=== PATIENT | male | born 1945 | race Caucasian/White ===

== ENCOUNTER 2017-10-24 16:17 | Observation (INO) | payer OTHER, BC ==
[~2017-10-24] VITALS: Ht 177.8 cm; Wt 75.7 kg
[2017-10-24] MEDS ORDERED: SODIUM CHLORIDE 0.9% 500ML 500 ML IV STA (16:35)
[2017-10-24] MEDS ORDERED: ASPIRIN 81 MG CHEW PO STA (16:35)
[2017-10-24] MEDS: NITROGLYCERIN 0.4 MG SL PER TAB CHARGE SL PRN ×2 (16:41→16:54)
[2017-10-24] MEDS ORDERED: VITAMIN B PO (16:59)
[2017-10-24] MEDS ORDERED: LUTE15CA (16:59)
[2017-10-24] MEDS ORDERED: CHOL100027 PO (16:59)
[2017-10-24 17:05] LABS: BASO % 0.4 %; BASO ABS # 0.04 K/uL (0-0.2); EOS % 0.4 %; EOS ABS # 0.04 K/uL (0-0.5); HEMATOCRIT 41.5 % (42-52); HEMOGLOBIN 14.9 g/dL (14.0-18.0); IG# 0.02 K/uL (0.00-0.02); LYMPH % 8.3 %; LYMPH ABS # 0.89 K/uL (1.2-3.4); MEAN CELL VOLUME 93.5 fL (80-100); MEAN CORPUSCULAR HEMOGLOBIN 33.6 pg (25-34); MEAN CORPUSCULAR HGB CONC 35.9 g/dl (32-36); MEAN PLATELET VOLUME 10.1 fL (7.4-10.4); MONO % 5.5 %; MONO ABS # 0.59 K/uL (0.11-0.59); NEUT % 85.2 %; PLATELET COUNT 204 K/uL (130-400); RED CELL DISTRIBUTION WIDTH CV 13.5 % (11.5-14.5); RED CELL DISTRIBUTION WIDTH SD 46.3 fL (36.4-46.3); WHITE BLOOD COUNT 10.78 K/uL (4.8-10.8)
--- NOTE | 2017-10-24 17:06 | DIAGNOSTIC IMAGING REPORT ---
SINGLE VIEW CHEST CLINICAL HISTORY: Atypical chest pain. FINDINGS: An AP, portable, upright chest radiograph is obtained. No prior studies are available for comparison at the time of dictation. The examination is degraded by portable technique and patient rotation. The heart is mildly enlarged. The pulmonary vasculature is noncongested. Bibasilar atelectasis is observed. No airspace consolidation or large pleural effusion is identified. No pneumothorax is seen. The skeletal structures are osteopenic. The bony thorax is grossly intact. IMPRESSION: Mild cardiac enlargement with no acute cardiopulmonary abnormality. Electronically signed by: Partha Leavitt M.D. 10/24/2017 5:05 PM Dictated Date/Time: 10/24/2017 5:04 PM
[2017-10-24 17:32] LABS: BLOOD UREA NITROGEN 15 mg/dl (7-18); CALCIUM 9.1 mg/dl (8.5-10.1); CARBON DIOXIDE 27 mmol/L (21-32); CKMB < 1.0 ng/ml (0.5-3.6); CREATININE 0.89 mg/dl (0.60-1.40); GLUCOSE 118 mg/dl (70-99); POTASSIUM 3.7 mmol/L (3.5-5.1); SODIUM 137 mmol/L (136-145)
[2017-10-24] MEDS ORDERED: GI COCKTAIL PO STA (18:30)
[2017-10-24] MEDS ORDERED: LIDOCAINE HCL 2% VISC SOLN 20 ML UDC ONE (18:45)
[2017-10-24] MEDS ORDERED: ALUMINUM/MAGNESIUM SUSP 30 ML UDC ONE (18:45)
--- NOTE | 2017-10-24 19:20 | EMERGENCY ROOM VISIT NOTE ---
History Report prepared by Charmaine: Franki Alonso Under the Supervision of: Dr. Roosevelt Webb D.O. First contact with patient: 16:25 Chief Complaint: CHEST PAIN Stated Complaint: CHEST PAIN History of Present Illness The patient is a 72 year old male who presents to the Emergency Room with complaints of waxing and waning chest pain that started today at 1300, 3.5 hours ago. The pain does not radiate anywhere and he describes it as a dull, achy sensation rating at a 4/10 in severity. The patient noted that the pain first appeared earlier in the day and went away after a nap, but returned a little while later. He says there are no factors that modify the pain. The patient states he is pretty active and regularly does yard work. He also stated that he stopped smoking 20 years ago and that both his grandmother and father from AAA following surgery. Pt denies headache, change in vision, fevers, shortness of breath, nausea, vomiting, diarrhea, pain with urination, and melena. Patient denies diabetes, hypertension, hyperlipidemia, CAD, and history of sudden at a young age. Patient denies swelling of calves, recent trips , history of immobilization or recent surgery, prior history of DVT, hemoptysis , history of malignancy, or control/estrogen use. Source of History: patient Onset: 3.5 hours ago Position: chest Symptom Intensity: 4/10 Quality: ache, dull Timing: waxes/wanes Review of Systems See HPI for pertinent positives & negatives. A total of 10 systems reviewed and were otherwise negative. Past Medical & Surgical Medical Problems: (1) Chest pain Pt denies any past medical history Family History FH: aortic aneurysm Social History Smoking Status: Former Smoker Marital Status: Housing Status: lives with significant other Occupation Status: employed Current/Historical Medications Scheduled Cholecalciferol (Vitamin D 1000 Unit), 2,000 INTER.UNIT PO DAILY Lutein-Zeaxanthin (Lutein), 1 CAP DAILY [Vitamin B], 1 TAB PO DAILY Allergies Coded Allergies: No Known Allergies (Unverified , 10/24/17) Physical Exam Vital Signs Date Time Temp Pulse Resp B/P (MAP) Pulse Ox O2 Delivery O2 Flow Rate FiO2 10/24/17 20:16 86 10/24/17 20:00 90 17 133/79 10/24/17 19:00 72 20 116/74 10/24/17 18:05 74 20 122/70 98 Room Air 10/24/17 17:00 83 20 124/73 98 Room Air 10/24/17 16:50 82 20 136/80 97 Room Air 10/24/17 16:47 93 10/24/17 16:40 80 160/97 97 Room Air 10/24/17 16:30 98 Room Air 10/24/17 16:22 37.0 96 18 172/95 98 Room Air Physical Exam GENERAL: Sitting up in bed, alert, well appearing, well nourished, no distress, non-toxic EYE EXAM: normal conjunctiva. OROPHARYNX: no exudate, no erythema, lips, buccal mucosa, and tongue normal and mucous membranes are moist NECK: supple, no nuchal rigidity, no adenopathy, non-tender LUNGS: Clear to auscultation. Normal chest wall mechanics HEART: Systolic injection murmur, S1 normal and S2 normal ABDOMEN: abdomen soft, non-tender, normo-active bowel sounds, no masses, no rebound or guarding. BACK: Back is symmetrical on inspection and there is no deformity, no midline tenderness, no CVA tenderness. SKIN: no rashes and no bruising UPPER EXTREMITIES: upper extremities are grossly normal. Radial pulses equal bilaterally LOWER EXTREMITIES: Calves equal bilaterally NEURO EXAM: Normal sensorium, cranial nerves II-XII grossly intact, normal speech, no gross weakness of arms, no gross weakness of legs. Medical Decision & Procedures ER Provider Diagnostic Interpretation: Radiology results as stated below per my review and the radiologist's interpretation: SINGLE VIEW CHEST CLINICAL HISTORY: Atypical chest pain. FINDINGS: An AP, portable, upright chest radiograph is obtained. No prior studies are available for comparison at the time of dictation. The examination is degraded by portable technique and patient rotation. The heart is mildly enlarged. The pulmonary vasculature is noncongested. Bibasilar atelectasis is observed. No airspace consolidation or large pleural effusion is identified. No pneumothorax is seen. The skeletal structures are osteopenic. The bony thorax is grossly intact. IMPRESSION: Mild cardiac enlargement with no acute cardiopulmonary abnormality. Electronically signed by: Partha Leavitt M.D. 10/24/2017 5:05 PM Dictated Date/Time: 10/24/2017 5:04 PM Laboratory Results 10/24/17 16:50 Red Blood Count 4.44, Mean Corpuscular Volume 93.5, Mean Corpuscular Hemoglobin 33.6, Mean Corpuscular Hemoglobin Concent 35.9, Mean Platelet Volume 10.1, Neutrophils (%) (Auto) 85.2, Lymphocytes (%) (Auto) 8.3, Monocytes (%) (Auto) 5.5, Eosinophils (%) (Auto) 0.4, Basophils (%) (Auto) 0.4, Neutrophils # (Auto) 9.20, Lymphocytes # (Auto) 0.89, Monocytes # (Auto) 0.59, Eosinophils # (Auto) 0.04, Basophils # (Auto) 0.04 10/24/17 16:50 Test 10/24/17 16:50 10/24/17 19:20 White Blood Count 10.78 K/uL (4.8-10.8) Red Blood Count 4.44 M/uL (4.7-6.1) Hemoglobin 14.9 g/dL (14.0-18.0) Hematocrit 41.5 % (42-52) Mean Corpuscular Volume 93.5 fL (80-100) Mean Corpuscular Hemoglobin 33.6 pg (25-34) Mean Corpuscular Hemoglobin Concent 35.9 g/dl (32-36) Platelet Count 204 K/uL (130-400) Mean Platelet Volume 10.1 fL (7.4-10.4) Neutrophils (%) (Auto) 85.2 % Lymphocytes (%) (Auto) 8.3 % Monocytes (%) (Auto) 5.5 % Eosinophils (%) (Auto) 0.4 % Basophils (%) (Auto) 0.4 % Neutrophils # (Auto) 9.20 K/uL (1.4-6.5) Lymphocytes # (Auto) 0.89 K/uL (1.2-3.4) Monocytes # (Auto) 0.59 K/uL (0.11-0.59) Eosinophils # (Auto) 0.04 K/uL (0-0.5) Basophils # (Auto) 0.04 K/uL (0-0.2) RDW Standard Deviation 46.3 fL (36.4-46.3) RDW Coefficient of Variation 13.5 % (11.5-14.5) Immature Granulocyte % (Auto) 0.2 % Immature Granulocyte # (Auto) 0.02 K/uL (0.00-0.02) Erythrocyte Sedimentation Rate 3 mm/hr (0-14) D-Dimer 430 ug/L FEU (0-500) Anion Gap 6.0 mmol/L (3-11) Est Creatinine Clear Calc Drug Dose 79.7 ml/min Estimated GFR () 100.4 Estimated GFR (Non- 86.6 BUN/Creatinine Ratio 16.3 (10-20) Calcium Level 9.1 mg/dl (8.5-10.1) Magnesium Level 1.9 mg/dl (1.8-2.4) Total Bilirubin 1.6 mg/dl (0.2-1) Direct Bilirubin 0.4 mg/dl (0-0.2) Aspartate Amino Transf (AST/SGOT) 21 U/L (15-37) Alanine Aminotransferase (ALT/SGPT) 32 U/L (12-78) Alkaline Phosphatase 92 U/L (45-117) Total Creatine Kinase 63 U/L (39-308) Creatine Kinase MB < 1.0 ng/ml (0.5-3.6) Creatine Kinase MB Ratio (0-3.0) Total Protein 7.9 gm/dl (6.4-8.2) Albumin 4.6 gm/dl (3.4-5.0) Lipase 90 U/L (73-393) Thyroid Stimulating Hormone (TSH) 0.680 uIu/ml (0.300-4.500) Troponin I < 0.015 ng/ml (0-0.045) Laboratory results per my review. Medications Administered Medications (Trade) Dose Ordered Sig/Cassy Route Start Time Stop Time Status Last Admin Dose Admin Sodium Chloride 500 ml @ 999 mls/hr Q31M STAT IV 10/24/17 16:35 10/24/17 17:05 DC 10/24/17 16:41 999 MLS/HR Nitroglycerin (Nitrostat Tab) 0.4 mg Q5M PRN SL 10/24/17 16:45 11/23/17 16:44 10/24/17 16:54 0.4 MG Aspirin (Aspirin Chew) 324 mg NOW STAT PO 10/24/17 16:35 10/24/17 16:37 DC 10/24/17 16:40 324 MG Miscellaneous Medication (Gi Cocktail) 24 ml NOW STAT PO 8/4/18 18:30 10/24/17 18:31 DC 10/24/17 18:50 24 ML ECG Per My Interpretation Indication: chest pain Rate (beats per minute): 97 Rhythm: sinus rhythm Findings: other (Poor baseline, no PVCs, normal axis) Change: REPEAT EKG SHOWS: Sinus Rhythm 75, normal axis, mil ST segment elevation in the inferior. ED Course ED COURSE: Vital signs were reviewed and showed Normal The patients medical record was reviewed The above diagnostic studies were performed and reviewed. ED treatments and interventions as stated above. 1626: The patient was evaluated in room C10. A complete history and physical examination was performed. 1635: Ordered Aspirin 324mg PO, NSS 500 ml @ 999mls/hr IV 1645: NTG .4mg SL 174: Patient wants to go home but I am going to repeat trop before discharge 1912: The patient is feeling much better, the GI cocktail did improve his pain. 1947: There is no chest pain, he is having some discomfort with deep inhalation. 1951: I discussed the case with Dr. Kim - Cardiology. He will evaluate the EKGs findings. 2051: Upon reevaluation, the patient is resting in bed. I discussed my findings with the patient and he understands and agrees with the treatment plan. Based on the patients age, coexisting illnesses, exam and lab findings the decision to treat as an inpatient was made. The patient remained stable while under my care. The patient will be evaluated for further management. 2052: I discussed with Dr. Zulema Carmen [facility] Hospitalist. He will evaluate for further treatment. Medical Decision Differential diagnoses includes but is not limited to acute coronary syndrome, myocardial infarction, pericarditis, pulmonary embolus, aortic dissection, pneumonia, pneumothorax, musculoskeletal, shingles, esophageal. 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 It is midsternal. No arm pain or jaw pain. No shortness of breath. No exertional component. He notes it feels like a muscle. Patient is a low risk for PEs and consequently d- dimer was obtained and unremarkable. Does have a family history of aortic issues. He has no known issues from standpoint. Chest x-ray does not show a dilated aorta. EKG was unremarkable. Initial troponin was negative. CBC and BMP was unremarkable. He was given nitro but noted that there is no significant improvement. He was given a GI cocktail and notes that there is mild improvement but is not sure whether it has just truly resolved with time. D-dimer as stated above was negative. Initial troponin was negative. Repeat troponin which would be a delta of 2 hours or 6 hours from the initial onset was negative. Repeat EKG at this time did show mild ST segment elevations in the inferior. There is no reciprocal changes. At this time patient had no chest pain. Only component was a pleuritic chest pain when he takes a very deep breath. Discussed with Dr. Kim who reviewed the EKGs. With his symptoms been present since 1 and his troponins being both negative he favors holding on heparin and catheterization at this time. Recommended at bedside echo to rule out any large pericardial effusion for possible pericarditis. I did perform this my focused limited bedside ultrasound shows no pericardial effusion. Said was obtained. Patient was updated bedside. Still chest pain- free. Discussed with Dr. Woodson and patient was agreeable to admission. He had declined this initially following the first troponin as he wants to go home but with these changes he was agreeable. Medication Reconcilliation Current Medication List: was personally reviewed by me Blood Pressure Screening Patient's blood pressure: Normal blood pressure Consults Time Called: 1945 Consulting Physician: Dr. Kim - Cardiology Returned Call: 1951 I discussed the case with Dr. Kim - Cardiology. He will evaluate the EKGs findings. Additional Consults: Time Called: 2049 Consulted Physician: Dr. Zulema Rojas Hospitalist Returned Call: 2052 Additional Comments: I discussed with Dr. Zulema Rojas Hospitalist. He will evaluate for further treatment. Impression Primary Impression: Precordial chest pain Additional Impression: Acute electrocardiogram changes Scribe Attestation The scribe's documentation has been prepared under my direction and personally reviewed by me in its entirety. I confirm that the note above accurately reflects all work, treatment, procedures, and medical decision making performed by me. Departure Information Dispostion Being Evaluated By Hospitalist Referrals No Doctor, Assigned (PCP) Patient Instructions My [facility] Problem Qualifiers
[2017-10-24 21:10] LABS: ALBUMIN 4.6 gm/dl (3.4-5.0); ALKALINE PHOSPHATASE 92 U/L (45-117); ALT/SGPT 32 U/L (12-78); AST/SGOT 21 U/L (15-37); LIPASE 90 U/L (73-393); TOTAL PROTEIN 7.9 gm/dl (6.4-8.2)
[2017-10-24] MEDS ORDERED: IV FLUIDS COMPLETED PRN (21:15)
[2017-10-24] MEDS ORDERED: ACETAMINOPHEN 325 MG TAB PO PRN (21:30)
[2017-10-24] MEDS ORDERED: TRAMADOL HCL 50 MG TAB PO PRN (21:30)
[2017-10-24] MEDS ORDERED: LORAZEPAM 2 MG/ML 1 ML VIAL IV PRN (21:30)
[2017-10-24] MEDS ORDERED: NITROGLYCERIN 0.4 MG SL PER TAB CHARGE SL PRN (21:30)
[2017-10-24] MEDS ORDERED: MoRPHine SULFATE 4 MG/ML 1 ML CARP\\VIAL IV PRN (21:30)
[2017-10-24] MEDS ORDERED: PROCHLORPERAZINE INJ 5 MG in SYRINGE 4 ML IV PRN (21:30)
[2017-10-24] MEDS ORDERED: LISINOPRIL 5 MG TAB PO STA (21:35)
[2017-10-24 22:09] VITALS: BP 138/83; PULSE 84; TEMP 37.2; O2SAT 96; Ht 177.8 cm; Wt 75.7 kg
[2017-10-24] MEDS ORDERED: LISINOPRIL 2.5 MG TAB PO ONE (22:15)
[2017-10-24] MEDS ORDERED: NSS + 20MEQ KCL 1000ML 1,000 ML IV ONE (22:30)
[2017-10-24 22:43] LABS: PTT PATIENT 28.4 SECONDS (21.0-31.0)
[2017-10-24] MEDS ORDERED: ENOXAPARIN 40 MG/0.4 ML SYR SC SCH (23:00)
--- NOTE | 2017-10-24 23:19 | Cardiology Consultation ---
Cardiology Consultation Date of Consultation: Oct 24, 2017 Requesting Physician: Dr. Eugene Rodrigez Attending [employer] Engineer: Dr. Luis Eduardo Kim History of Present Illness Patient is a 72 year old male presented to the emergency department for evaluation of chest discomfort. Patient had been working in his yard this morning. He was raking as well as lifting some moderately heavy objects. Denied any discomfort while exerting himself. Afterward he consumed a hotdog from a local gas station. After eating at approximately 1:30 PM he experienced an episode of substernal chest discomfort. Describes the pain as a dull ache. The pain was mild to moderate in intensity. There was no associated shortness of breath, palpitations, diaphoresis, lightheadedness, dizziness, syncope or near syncope. The pain did not radiate. Lasted less than 15 minutes. Patient went home and rested. In the afternoon he was driving to see a [employer] game when the pain recurred. Patient then proceeded to the emergency department for further evaluation. The initial ECG demonstrates normal sinus rhythm. Repeat ECG demonstrates some subtle inferior ST elevation with associated [place] depression. Patient was treated with aspirin, sublingual nitroglycerin, and " GI cocktail". His pain resolved. He then reported a mild lower substernal discomfort with deep inspiration. That pain is also significantly improved. Currently he is pain-free. He can reproduce a mild sensation described as a "muscle pulling" with deep inspiration. No pain at rest. He is consuming a meal. He denies chest heaviness or tightness. No shortness of breath. No dysrhythmias on telemetry. A fourth ECG performed this evening demonstrates diffuse ST elevation as well as [place] depression. Cardiac enzymes are undetectable 3 sets. Patient denies personal history of coronary disease, congestive heart failure, dysrhythmia, rheumatic fever as a child, or diabetes. States he carries a history of mitral valve prolapse. Past Medical/Surgical History Problem List: Medical Problems: (1) Chest pain (2) Possible mitral valve prolapse Family History FH: aortic aneurysm Denies family history of premature coronary disease or sudden cardiac . Social History Smoking Status: Former Smoker Marital Status: Occupation: employed Review Of Systems General: The patient denies weight change, night sweats, fever, chills. Head: The patient denies headache and prior head trauma. Cardiovascular: Chest discomfort as noted per HPI, dyspnea on exertion, palpitations, PND, orthopnea, edema, spontaneous shortness of breath, syncope and near syncope. Pulmonary: The patient denies cough, wheeze, pleurisy, hemoptysis, sputum, and excessive snoring. Gastrointestinal: The patient denies nausea, vomiting, diarrhea, constipation, bloating, hematemesis, hematochezia, and abdominal pain. Skin: The patient denies diaphoresis and rash. Musculoskeletal: The patient denies joint pain, joint swelling, myalgia, back pain, neck pain and prior injuries. Neurological: The patient denies prior stroke and seizures Allergies Coded Allergies: No Known Allergies (Unverified , 10/24/17) Medications Reported Home Medications Medications Dose Route/Sig Max Daily Dose Days Date Category Lutein (Lutein-Zeaxanthin) 1 Cap Cap 1 Cap DAILY 10/24/17 Reported [Vitamin B] 1 Tab PO DAILY 10/24/17 Reported Vitamin D 1000 Unit (Cholecalciferol) 1,000 Unit Cap 2,000 Inter.unit PO DAILY 10/24/17 Reported Physical Exam Vital Signs (Last 8hrs): Last 8 Hrs Date Time Temp Pulse Resp B/P (MAP) Pulse Ox O2 Delivery O2 Flow Rate FiO2 10/24/17 22:09 37.2 84 16 138/83 96 Room Air 10/24/17 20:16 86 10/24/17 20:00 90 17 133/79 10/24/17 19:00 72 20 116/74 10/24/17 18:05 74 20 122/70 98 Room Air 10/24/17 17:00 83 20 124/73 98 Room Air 10/24/17 16:50 82 20 136/80 97 Room Air 10/24/17 16:47 93 10/24/17 16:40 80 160/97 97 Room Air 10/24/17 16:30 98 Room Air 10/24/17 16:22 37.0 96 18 172/95 98 Room Air General Appearance: Alert and Oriented x3. NAD. Head: Normocephalic Atraumatic. Eyes: PERRLA, EOMI, conjunctiva and sclera clear Neck: Supple. No carotid bruits noted. No JVD. No HJD. Respiratory: Breath sounds clear to auscultation bilaterally. No w/r/r. Cardiovascular: Reg rate and rhythm. S1 and S2 noted. +Friction rub heard at the left sternal border at end exhalation. 2/6 holosystolic murmur heard best at the apex. No gallops. PMI non displace. Abdomen: Normal bowel sounds, soft nontender. no abdominal bruits. Extremities: No edema, no clubbing or cyanosis. distal pulses 2/4 bilaterally. Neuro: No focal deficits. Psychiatric: Normal affect. Data Last 24 Hours Test 10/24/17 16:50 10/24/17 19:20 10/24/17 22:07 White Blood Count 10.78 K/uL Red Blood Count 4.44 M/uL Hemoglobin 14.9 g/dL Hematocrit 41.5 % Mean Corpuscular Volume 93.5 fL Mean Corpuscular Hemoglobin 33.6 pg Mean Corpuscular Hemoglobin Concent 35.9 g/dl Platelet Count 204 K/uL Mean Platelet Volume 10.1 fL Neutrophils (%) (Auto) 85.2 % Lymphocytes (%) (Auto) 8.3 % Monocytes (%) (Auto) 5.5 % Eosinophils (%) (Auto) 0.4 % Basophils (%) (Auto) 0.4 % Neutrophils # (Auto) 9.20 K/uL Lymphocytes # (Auto) 0.89 K/uL Monocytes # (Auto) 0.59 K/uL Eosinophils # (Auto) 0.04 K/uL Basophils # (Auto) 0.04 K/uL RDW Standard Deviation 46.3 fL RDW Coefficient of Variation 13.5 % Immature Granulocyte % (Auto) 0.2 % Immature Granulocyte # (Auto) 0.02 K/uL Erythrocyte Sedimentation Rate 3 mm/hr D-Dimer 430 ug/L FEU Sodium Level 137 mmol/L Potassium Level 3.7 mmol/L Chloride Level 103 mmol/L Carbon Dioxide Level 27 mmol/L Anion Gap 6.0 mmol/L Blood Urea Nitrogen 15 mg/dl Creatinine 0.89 mg/dl Est Creatinine Clear Calc Drug Dose 79.7 ml/min Estimated GFR () 100.4 Estimated GFR (Non- 86.6 BUN/Creatinine Ratio 16.3 Random Glucose 118 mg/dl Calcium Level 9.1 mg/dl Magnesium Level 1.9 mg/dl Total Bilirubin 1.6 mg/dl Direct Bilirubin 0.4 mg/dl Aspartate Amino Transf (AST/SGOT) 21 U/L Alanine Aminotransferase (ALT/SGPT) 32 U/L Alkaline Phosphatase 92 U/L Total Creatine Kinase 63 U/L Creatine Kinase MB < 1.0 ng/ml Creatine Kinase MB Ratio Troponin I < 0.015 ng/ml < 0.015 ng/ml < 0.015 ng/ml Total Protein 7.9 gm/dl Albumin 4.6 gm/dl Lipase 90 U/L Thyroid Stimulating Hormone (TSH) 0.680 uIu/ml Prothrombin Time 10.7 SECONDS Prothromb Time International Ratio 1.0 Activated Partial Thromboplast Time 28.4 SECONDS Partial Thromboplastin Ratio 1.1 C-Reactive Protein 1.84 mg/dl Imaging: Checks x-ray within normal limits. EKG: As described per HPI. Telemetry reviewed: Sinus rhythm Assessment & Plan Final Impression: 1. 72-year-old male presents for evaluation of chest discomfort with pleuritic features. Cardiac enzymes undetectable 3 sets. Currently pain-free except for a mild amount of substernal discomfort with deep inhalation. ECG with findings concerning for pericarditis. 2. Former Tobacco abuse 3. History of mitral valve prolapse Plan / Recommendations: Patient's third set of cardiac enzymes are undetectable as noted above. A bedside echocardiogram will be performed to exclude regional wall motion abnormality as well as to assess for potential pericardial effusion. CRP drawn with results pending at this time. Continue low-dose aspirin and telemetry monitoring. Consider exercise stress echocardiography in a.m. pending results of resting 2D transthoracic echo. Thank you for allowing me to participate in the care of your patient. Addendum: Bedside echocardiogram demonstrates normal wall motion, posterior mitral valve prolapse with moderate mitral regurgitation. Patient remains pain- free. CRP is elevated. ECG suggestive of pericarditis with pleuritic pain as described above. Recommend aspirin 650 mg 3 times daily with colchicine 0.6 mg daily weekly. Proton pump inhibitor will be added for GI protection. Baseline lab studies to be performed in a.m. including VERONICA, rheumatoid factor, Quantiferon TB test.
[2017-10-24] MEDS ORDERED: ASPIRIN/ALUM/MAGNES/CAL CARB 325 MG TAB PO ONE (23:34)
--- NOTE | 2017-10-24 23:37 | HISTORY & PHYSICAL EXAMINATION ---
DATE OF ADMISSION: 10/24/2017 PRIMARY CARE PHYSICIAN: None. CHIEF COMPLAINT: Chest pain. HISTORY OF PRESENT ILLNESS: Medical history significant for past tobacco abuse. Patient was working in the yard today, noted substernal pain, nonradiating, waxing and waning, dull, pleuritic. No shortness of breath, no diaphoresis, no previous episodes. No recollection of recent tick bites. Patient brought to the Emergency. Given aspirin, Maalox, nitroglycerin. Patient is currently comfortable. MEDICAL HISTORY: As above. SURGERIES: Dental surgery, tonsillectomy, and adenoidectomy. HOME MEDICATIONS: Include vitamin D, Lutein. ALLERGIES: No known drug allergies. FAMILY HISTORY: Aortic aneurysm, heart disease. PERSONAL AND SOCIAL HISTORY: Past tobacco use. No EtOH intake. Practicing high school director. REVIEW OF SYSTEMS: As per HPI. All 10 systems reviewed, all other ROS negative. PHYSICAL EXAMINATION: VITAL SIGNS: Blood pressure was noted to be 170/95, later 136/60, pulse rate noted to be 82, RR 20, temperature 37, sats 98 on room air. GENERAL: Slightly anxious, no respiratory distress. SKIN: Normal color, warm. HEENT: Partial alopecia. Bespectacled, pink palpebral conjunctivae. No ptosis, dry mucosa. NECK: Supple, nontender. CHEST: Clear to auscultation, No chest wall tenderness. HEART: Regular rate rhythm, no murmur. ABDOMEN: Soft, nontender. EXTREMITIES: No edema. No tenderness, no gross deformities. NEUROLOGIC: Coherent, no gross focality. LABORATORY DATA: Hemoglobin was 13 WBC 9, platelets 204. Sodium 137, potassium 3.7, chloride 103, CO2 7, BUN 50, creatinine 0.8, glucose is 118. ESR 3 Two sets of troponin were negative. Chest x-ray, cardiomegaly, mild cardiac enlargement. EKG as per my interpretation, rate 75, NSR, ST elevation in inferior leads, Q- waves inferior leads, NE depression noted on some leads. ASSESSMENT AND PLAN: 1. Chest pain ACS versus pericarditis 2. elevated blood pressure Situational versus chronic (given cardiac enlargement on CXR) 3. hyperglycemia ro DM 4. past tobacco abuse PLAN: Observation PCU ASA for CAD prevention until ACS ruled out. Follow cardiac markers Check CRP, Lyme screen. 2D echo, Cardio consult in the morning. RE cp (ER provider already in touch with Dr. Kim.) Monitor BP, consider initiation of NEHEMIAS inhibitor if with constant BP elevation check hemoglobin A1c DVT prophylaxis, Lovenox subQ. Full code. MTDD
[2017-10-25] MEDS ORDERED: KETOROLAC TROMETHAMINE 15 MG/ML VIAL IV. PRN
[2017-10-25] MEDS ORDERED: IBUPROFEN 200 MG TAB PO PRN
--- NOTE | 2017-10-25 00:04 | ECHOCARDIOGRAM REPORT ---
*NOTICE TO RECEIVING REPUBLICAN AGENCY This information is strictly Confidential and protected under [place] law. [place] law prohibits you from making any further disclosure of this information unless further disclosure is expressly permitted by the written consent of the person to whom it pertains or is authorized by law. A general authorization for the release of medical or other information is not sufficient for this purpose. Hospital accepts no responsibility if the information is made available to any other person, INCLUDING THE PATIENT. Interpretation Summary * Name: FARIDA FIGUEROA Study Date: 10/24/2017 11:09 PM BP: 138/83 mmHg * Patient Location: [facility] HR: 83 * : 1945 (M/d/yyyy) Gender: Male Height: 70 in * Age: 72 yrs Ethnicity: CA Weight: 176 lb * Ordering Physician: Armando Kim DO * Performed By: Shruthi Joseph RCS * * Reason For Study: CHEST PAIN * BSA: 2.0 m2 * The study was technically adequate. * There is no comparison study available. * -- Conclusions -- * Left ventricular systolic function is normal. * Ejection Fraction = 60-65%. * The left ventricular wall motion is normal. * Grade I diastolic dysfunction, (abnormal relaxation pattern). * There is no pericardial effusion. * Moderate posterior mitral valve leaflet prolapse. * There is moderate mitral regurgitation. * Mild aortic root dilatation. Procedure Details * A complete two-dimensional transthoracic echocardiogram was performed (2D, M-mode, Doppler and color flow Doppler). Left Ventricle * The left ventricle is normal in size. * There is no thrombus. * There is normal left ventricular wall thickness. * Left ventricular systolic function is normal. * Ejection Fraction = 60-65%. * The left ventricular wall motion is normal. Right Ventricle * The right ventricular cavity size is normal (basal dimension <4.2 cm in right ventricular apical 4-chamber view). * The right ventricular systolic function is normal as assessed by tricuspid annular plane systolic excursion (TAPSE) (normal >1.5 cm). Atria * The left atrial size is normal. * Right atrial size is normal. * There is no evidence of atrial septal defect, but resolution does not allow assessment for a patent foramen ovale. Mitral Valve * The mitral valve is normal. * Moderate posterior mitral valve leaflet prolapse. * There is no mitral valve stenosis. * There is moderate mitral regurgitation. Tricuspid Valve * The tricuspid valve is normal. * There is no tricuspid stenosis. * Significant tricuspid regurgitation is absent. Aortic Valve * The aortic valve is trileaflet. * Aortic stenosis is absent. * There is no significant aortic regurgitation. Pulmonic Valve * The pulmonary valve is not well seen, but the Doppler examination is normal without significant regurgitation or stenosis. Great Vessels * Mild aortic root dilatation. Pericardium/Pleural * There is no pericardial effusion. Great Vessels * Normal inferior vena cava diameter and respiratory variation suggests normal central venous pressure. Left Ventricular Diastolic Function * Grade I diastolic dysfunction, (abnormal relaxation pattern). MMode 2D Measurements and Calculations IVSd 1.3 cm IVSs 1.8 cm LVIDd 4.9 cm LVIDs 2.8 cm LVPWd 1.2 cm LVPWs 1.6 cm IVS/LVPW 1.1 FS 42.7 % EDV(Teich) 110.2 ml ESV(Teich) 29.0 ml EF(Teich) 73.7 % EDV(cubed) 114.1 ml ESV(cubed) 21.4 ml EF(cubed) 81.2 % % IVS thick 41.0 % % LVPW thick 37.4 % LV mass(C)d 225.5 grams LV mass(C)dI 114.1 grams/m\S\2 LV mass(C)s 176.1 grams LV mass(C)sI 89.1 grams/m\S\2 SV(Teich) 81.2 ml SI(Teich) 41.1 ml/m\S\2 SV(cubed) 92.7 ml SI(cubed) 46.9 ml/m\S\2 Ao root diam 4.0 cm Ao root area 12.5 cm\S\2 ACS 2.2 cm LA dimension 3.1 cm LA/Ao 0.78 LVOT diam 2.0 cm LVOT area 3.1 cm\S\2 LVAd ap4 23.6 cm\S\2 LVLd ap4 6.8 cm EDV(MOD-sp4) 67.8 ml EDV(sp4-el) 69.2 ml LVAs ap4 15.1 cm\S\2 LVLs ap4 5.7 cm ESV(MOD-sp4) 33.3 ml ESV(sp4-el) 33.7 ml EF(MOD-sp4) 51.0 % EF(sp4-el) 51.4 % LVAd ap2 29.1 cm\S\2 LVLd ap2 7.5 cm EDV(MOD-sp2) 94.1 ml EDV(sp2-el) 95.9 ml LVAs ap2 16.2 cm\S\2 LVLs ap2 5.9 cm ESV(MOD-sp2) 37.5 ml ESV(sp2-el) 37.6 ml EF(MOD-sp2) 60.1 % EF(sp2-el) 60.8 % LVLd %diff 9.0 % EDV(MOD-bp) 83.7 ml LVLs %diff 3.3 % ESV(MOD-bp) 35.5 ml EF(MOD-bp) 57.6 % SV(MOD-sp4) 34.6 ml SI(MOD-sp4) 17.5 ml/m\S\2 SV(MOD-sp2) 56.6 ml SI(MOD-sp2) 28.6 ml/m\S\2 SV(MOD-bp) 48.2 ml SI(MOD-bp) 24.4 ml/m\S\2 SV(sp4-el) 35.5 ml SI(sp4-el) 18.0 ml/m\S\2 SV(sp2-el) 58.3 ml SI(sp2-el) 29.5 ml/m\S\2 Doppler Measurements and Calculations MV E max anand 79.8 cm/sec MV A max anand 85.2 cm/sec MV E/A 0.94 MV P1/2t max anand 84.6 cm/sec MV P1/2t 67.8 msec MVA(P1/2t) 3.2 cm\S\2 MV dec slope 365.1 cm/sec\S\2 MV dec time 0.27 sec Ao V2 max 141.2 cm/sec Ao max PG 8.0 mmHg Ao max PG (full) 1.4 mmHg TRACI(V,A) 2.8 cm\S\2 TRACI(V,D) 2.8 cm\S\2 LV V1 max PG 6.6 mmHg LV V1 max 128.0 cm/sec MR max anand 550.3 cm/sec MR max PG 121.5 mmHg PA V2 max 71.6 cm/sec PA max PG 2.1 mmHg TR max anand 258.8 cm/sec
[2017-10-25 03:00] VITALS: BP 109/68; PULSE 72; TEMP 37; O2SAT 96
[2017-10-25 04:11] LABS: BASO % 0.4 %; BASO ABS # 0.04 K/uL (0-0.2); EOS % 0.8 %; EOS ABS # 0.07 K/uL (0-0.5); HEMATOCRIT 38.9 % (42-52); HEMOGLOBIN 13.6 g/dL (14.0-18.0); IG# 0.02 K/uL (0.00-0.02); LYMPH % 19.6 %; LYMPH ABS # 1.82 K/uL (1.2-3.4); MEAN CELL VOLUME 93.5 fL (80-100); MEAN CORPUSCULAR HEMOGLOBIN 32.7 pg (25-34); MEAN PLATELET VOLUME 9.6 fL (7.4-10.4); MONO % 8.7 %; MONO ABS # 0.81 K/uL (0.11-0.59); NEUT % 70.3 %; NEUT ABS # 6.52 K/uL (1.4-6.5); PLATELET COUNT 190 K/uL (130-400); RED CELL DISTRIBUTION WIDTH CV 13.7 % (11.5-14.5); RED CELL DISTRIBUTION WIDTH SD 46.5 fL (36.4-46.3); WHITE BLOOD COUNT 9.28 K/uL (4.8-10.8)
[2017-10-25 04:25] LABS: PTT PATIENT 33.6 SECONDS (21.0-31.0)
[2017-10-25 04:46] LABS: ALBUMIN 3.6 gm/dl (3.4-5.0); ALKALINE PHOSPHATASE 75 U/L (45-117); ALT/SGPT 25 U/L (12-78); AST/SGOT 13 U/L (15-37); BLOOD UREA NITROGEN 12 mg/dl (7-18); CALCIUM 8.2 mg/dl (8.5-10.1); CARBON DIOXIDE 25 mmol/L (21-32); CHOLESTEROL 143 mg/dl (0-200); CREATININE 0.82 mg/dl (0.60-1.40); GLUCOSE 102 mg/dl (70-99); LDL CHOLESTEROL CALCULATED 71 mg/dl; POTASSIUM 3.7 mmol/L (3.5-5.1); SODIUM 139 mmol/L (136-145); TOTAL PROTEIN 6.6 gm/dl (6.4-8.2)
[2017-10-25] MEDS ORDERED: CALCIUM GLUCONATE 10% 1,000 MG in SODIUM CHLORIDE 0.9% 50ML 50 ML IV STA (06:45)
[2017-10-25 07:31] VITALS: BP 124/72; PULSE 67; TEMP 36.8; O2SAT 96
[2017-10-25] MEDS: ASPIRIN/ALUM/MAGNES/CAL CARB 325 MG TAB PO SCH ×2 (08:06→13:27)
[2017-10-25] MEDS ORDERED: COLCHICINE 0.6 MG TAB PO SCH (09:00)
[2017-10-25] MEDS ORDERED: ASPIRIN 81 MG ECTAB PO SCH (09:00)
[2017-10-25] MEDS ORDERED: PANTOprazole SOD 40 MG TAB PO SCH (09:00)
--- NOTE | 2017-10-25 09:49 | Progress Note ---
Medicine Progress Note Date & Time of Visit: Oct 25, 2017 at 09:42. Subjective Pt was seen and examined Lying in bed with no distress with one family member Given the permission to talk in front of family Pt said that he feels fine He said that he does not have any chest pain He said that he is ready to discharge today Denies any chest pain, palpitation, dizziness and SOB Objective Last 8 Hrs Date Time Temp Pulse Resp B/P (MAP) Pulse Ox O2 Delivery O2 Flow Rate FiO2 10/25/17 07:31 36.8 67 18 124/72 (89) 96 10/25/17 03:00 37.0 72 18 109/68 (82) 96 Room Air Physical Exam: General- No acute distress Head- atraumatic Eyes- PERRL, EOMI ENT- oropharynx clear Neck- supple, no JVD Lungs- clear to auscultation Heart- regular rhythm, +murmur Abdomen- normal bowel sounds, soft Extremities- no pretibial edema, no calf tenderness Neuro- alert, oriented x 3; PERRL, EOMI; no facial palsy Skin- warm & dry Laboratory Results: Last 24 Hours Test 10/24/17 16:50 10/24/17 19:20 10/24/17 22:07 10/25/17 04:01 White Blood Count 10.78 K/uL 9.28 K/uL Red Blood Count 4.44 M/uL 4.16 M/uL Hemoglobin 14.9 g/dL 13.6 g/dL Hematocrit 41.5 % 38.9 % Mean Corpuscular Volume 93.5 fL 93.5 fL Mean Corpuscular Hemoglobin 33.6 pg 32.7 pg Mean Corpuscular Hemoglobin Concent 35.9 g/dl 35.0 g/dl Platelet Count 204 K/uL 190 K/uL Mean Platelet Volume 10.1 fL 9.6 fL Neutrophils (%) (Auto) 85.2 % 70.3 % Lymphocytes (%) (Auto) 8.3 % 19.6 % Monocytes (%) (Auto) 5.5 % 8.7 % Eosinophils (%) (Auto) 0.4 % 0.8 % Basophils (%) (Auto) 0.4 % 0.4 % Neutrophils # (Auto) 9.20 K/uL 6.52 K/uL Lymphocytes # (Auto) 0.89 K/uL 1.82 K/uL Monocytes # (Auto) 0.59 K/uL 0.81 K/uL Eosinophils # (Auto) 0.04 K/uL 0.07 K/uL Basophils # (Auto) 0.04 K/uL 0.04 K/uL RDW Standard Deviation 46.3 fL 46.5 fL RDW Coefficient of Variation 13.5 % 13.7 % Immature Granulocyte % (Auto) 0.2 % 0.2 % Immature Granulocyte # (Auto) 0.02 K/uL 0.02 K/uL Erythrocyte Sedimentation Rate 3 mm/hr D-Dimer 430 ug/L FEU Sodium Level 137 mmol/L 139 mmol/L Potassium Level 3.7 mmol/L 3.7 mmol/L Chloride Level 103 mmol/L 108 mmol/L Carbon Dioxide Level 27 mmol/L 25 mmol/L Anion Gap 6.0 mmol/L 6.0 mmol/L Blood Urea Nitrogen 15 mg/dl 12 mg/dl Creatinine 0.89 mg/dl 0.82 mg/dl Est Creatinine Clear Calc Drug Dose 79.7 ml/min 86.6 ml/min Estimated GFR () 100.4 103.8 Estimated GFR (Non- 86.6 89.6 BUN/Creatinine Ratio 16.3 14.2 Random Glucose 118 mg/dl 102 mg/dl Calcium Level 9.1 mg/dl 8.2 mg/dl Magnesium Level 1.9 mg/dl Total Bilirubin 1.6 mg/dl 2.2 mg/dl Direct Bilirubin 0.4 mg/dl Aspartate Amino Transf (AST/SGOT) 21 U/L 13 U/L Alanine Aminotransferase (ALT/SGPT) 32 U/L 25 U/L Alkaline Phosphatase 92 U/L 75 U/L Total Creatine Kinase 63 U/L Creatine Kinase MB < 1.0 ng/ml Creatine Kinase MB Ratio Troponin I < 0.015 ng/ml < 0.015 ng/ml < 0.015 ng/ml < 0.015 ng/ml Total Protein 7.9 gm/dl 6.6 gm/dl Albumin 4.6 gm/dl 3.6 gm/dl Lipase 90 U/L Thyroid Stimulating Hormone (TSH) 0.680 uIu/ml Prothrombin Time 10.7 SECONDS Prothromb Time International Ratio 1.0 Activated Partial Thromboplast Time 28.4 SECONDS 33.6 SECONDS Partial Thromboplastin Ratio 1.1 1.3 C-Reactive Protein 1.84 mg/dl Lyme Disease IgG Antibody NEG Lyme Disease IgM Antibody NEG Hepatitis C Antibody Screen NEG Globulin 3.0 gm/dl Albumin/Globulin Ratio 1.2 Triglycerides Level 69 mg/dl Cholesterol Level 143 mg/dl HDL Cholesterol 58 mg/dl LDL Cholesterol, Calculated 71 mg/dl VLDL Cholesterol, Calculated 14 mg/dl Cholesterol/HDL Ratio 2.5 Test 10/25/17 06:56 Assessment & Plan Acute pericarditis Present with chest pain EKG showed classic finding for pericarditis with diffuse ST elevation as well as ND depression Troponin x4 sets negative Elevated CRP level Lyme titer negative No arrhythmia on tele monitor Asymptomatic Cardiology on board Case discussed with Dr. Kim recommended: Aspirin 650mg TIDx10 days and colchicine daily for 30days Will add PPI for GI protection VERONICA, rheumatoid factor, Quantiferon TB test pending OK from Cardiology standpoint to discharge home Will need follow up with Cardio in 1-2 weeks ECHO * Left ventricular systolic function is normal. * Ejection Fraction = 60-65%. * The left ventricular wall motion is normal. * Grade I diastolic dysfunction, (abnormal relaxation pattern). * There is no pericardial effusion. * Moderate posterior mitral valve leaflet prolapse. * There is moderate mitral regurgitation. * Mild aortic root dilatation. Mild elevated Glucose Hba1c pending Follow a healthy diabetes diet DVT px On Lovenox CODE STATUS FULL CODE Consultants: Cardio Current Inpatient Medications: Current Inpatient Medications Medications (Trade) Dose Ordered Sig/Cassy Route Start Time Stop Time Status Last Admin Dose Admin Miscellaneous (Iv Fluids Completed) 1 ea PRN PRN N/A 10/24/17 21:15 10/24/18 21:14 Enoxaparin Sodium (Lovenox Inj) 40 mg Q24H SC 10/24/17 23:00 11/23/17 22:59 10/24/17 23:47 40 MG Potassium Chloride/Sodium Chloride 1,000 ml @ 75 mls/hr [id number] ONCE IV 10/24/17 22:30 10/25/17 11:49 10/24/17 23:46 75 MLS/HR Acetaminophen (Tylenol Tab) 650 mg Q4H PRN PO 10/24/17 21:30 11/23/17 21:29 Tramadol HCl (Ultram Tab) 25 mg Q6H PRN PO 10/24/17 21:30 11/23/17 21:29 Prochlorperazine Edisylate 5 mg/ Syringe 5 ml @ 5 mls/min Q6H PRN IV 10/24/17 21:30 11/23/17 21:29 Lorazepam (Ativan Inj) 0.5 mg Q4H PRN IV 10/24/17 21:30 11/23/17 21:29 Morphine Sulfate (MoRPHine SULFATE INJ) 4 mg Q3H PRN IV 10/24/17 21:30 11/07/17 21:29 Aspirin/Aluminum/ Magnesium/Ca Carb (Ascriptin Tab) 650 mg TID PO 10/25/17 09:00 11/24/17 08:59 10/25/17 08:06 650 MG Colchicine (Colchicine Tab) 0.6 mg QAM PO 10/25/17 09:00 11/24/17 08:59 10/25/17 08:06 0.6 MG Pantoprazole Sodium (Protonix Tab) 40 mg QAM PO 10/25/17 09:00 10/28/17 09:01 10/25/17 08:06 40 MG Ketorolac Tromethamine (Toradol Inj) 15 mg Q6H PRN IV. 10/25/17 00:00 10/30/17 00:00 Ibuprofen (Advil Tab) 400 mg Q6H PRN PO 10/25/17 00:00 11/24/17 00:00
[2017-10-25 11:13] VITALS: BP 117/75; PULSE 63; TEMP 36.8; O2SAT 97
--- NOTE | 2017-10-25 11:44 | Cardiology Follow-Up ---
Subjective General Date of Service: Oct 25, 2017. Pt evaluation today including: conversation w/ patient, conversation w/ family , physical exam, chart review, lab review, review of studies, conversation w/ [employer] business [employer] consultant, review of inpatient medication list History of Present Illness The patient is a 72 year old male seen in follow-up. Chest discomfort has resolved. Denies any pleuritic pain. Requesting discharge. No shortness of breath, palpitations, or lightheadedness. Telemetry demonstrates sinus rhythm. Repeat ECG this a.m. demonstrates diffuse ST elevation. is present at bedside. Patient offers no complaints at this time. Allergies Coded Allergies: No Known Allergies (Unverified , 10/24/17) Social History Smoking Status: Former Smoker Hx Alcohol Use - Type And Amou: Yes (1-2 glasses of wine 4-5 nights per week) Hx Substance Use - Type And Am: No Problem List Medical Problems: (1) Acute electrocardiogram changes Status: Acute (2) Precordial chest pain Status: Acute Review of Systems Respiratory: No cough, No sputum, No wheezing, No shortness of breath, No dyspnea on exertion, No dyspnea at rest, No hemoptysis Cardiac: No chest pain, No orthopnea, No PND, No edema, No claudication, No palpitations Physical Exam Vital Signs Last Vital Signs Documentation Date Time Temp Pulse Resp B/P (MAP) Pulse Ox O2 Delivery O2 Flow Rate FiO2 10/25/17 11:13 36.8 63 20 117/75 (89) 97 10/25/17 08:00 Room Air Physical Exam Constitutional: General Apperance: heathly-appearing Level of Distress: NAD Ambulation: ambulating normally Head: normocephalic, atraumatic ENMT: normal ENT inspection Neck: supple, trachea midline Lungs: Respiratory effort: no dyspnea Auscultation: breath sounds normal, no wheezing, no rales/crackles, no rhonchi Cardiovascular: Heart Auscultation: RRR, normal S1, normal S2, no rubs, no gallops, II/ WSM Peripheral Pulses: Carotid Pulse: normal on the left, normal on the right Dorsalis Pedis Pulse: normal on the left, normal on the right Abdomen: Bowel Sounds: normal Inspection & Palpation: soft, non-distended, no tenderness, guarding & rebound Extremities: no cyanosis, no edema, no clubbing, no ulcers Neurologic: Gait & Station: pertinent finding (No focal motor deficit) Cranial Nerves: grossly intact Assessment and Plan Assessment and Plan Final Impression: 1. Acute pericarditis 2. Former Tobacco abuse 3. Mitral valve prolapse with moderate mitral regurgitation Plan / Recommendations: Recommend aspirin 650 mg 3 times daily 10 days. Colchicine 0.6 mg daily 30 days. Proton pump inhibitor will be continued for GI protection. Natural history and pathophysiology of pericarditis as well as mitral valve prolapse with mitral regurgitation discussed with the patient and his . No indication for mitral valve repair at this time. All questions answered to their satisfaction. Would recommend yearly echocardiogram for follow-up of mitral valve prolapse. I will see the patient back for hospital follow-up in approximately 2 weeks. Patient may be discharged home today. Laboratory Results Last 24 Hours Test 10/24/17 16:50 10/24/17 19:20 10/24/17 22:07 10/25/17 04:01 White Blood Count 10.78 K/uL 9.28 K/uL Red Blood Count 4.44 M/uL 4.16 M/uL Hemoglobin 14.9 g/dL 13.6 g/dL Hematocrit 41.5 % 38.9 % Mean Corpuscular Volume 93.5 fL 93.5 fL Mean Corpuscular Hemoglobin 33.6 pg 32.7 pg Mean Corpuscular Hemoglobin Concent 35.9 g/dl 35.0 g/dl Platelet Count 204 K/uL 190 K/uL Mean Platelet Volume 10.1 fL 9.6 fL Neutrophils (%) (Auto) 85.2 % 70.3 % Lymphocytes (%) (Auto) 8.3 % 19.6 % Monocytes (%) (Auto) 5.5 % 8.7 % Eosinophils (%) (Auto) 0.4 % 0.8 % Basophils (%) (Auto) 0.4 % 0.4 % Neutrophils # (Auto) 9.20 K/uL 6.52 K/uL Lymphocytes # (Auto) 0.89 K/uL 1.82 K/uL Monocytes # (Auto) 0.59 K/uL 0.81 K/uL Eosinophils # (Auto) 0.04 K/uL 0.07 K/uL Basophils # (Auto) 0.04 K/uL 0.04 K/uL RDW Standard Deviation 46.3 fL 46.5 fL RDW Coefficient of Variation 13.5 % 13.7 % Immature Granulocyte % (Auto) 0.2 % 0.2 % Immature Granulocyte # (Auto) 0.02 K/uL 0.02 K/uL Erythrocyte Sedimentation Rate 3 mm/hr D-Dimer 430 ug/L FEU Sodium Level 137 mmol/L 139 mmol/L Potassium Level 3.7 mmol/L 3.7 mmol/L Chloride Level 103 mmol/L 108 mmol/L Carbon Dioxide Level 27 mmol/L 25 mmol/L Anion Gap 6.0 mmol/L 6.0 mmol/L Blood Urea Nitrogen 15 mg/dl 12 mg/dl Creatinine 0.89 mg/dl 0.82 mg/dl Est Creatinine Clear Calc Drug Dose 79.7 ml/min 86.6 ml/min Estimated GFR () 100.4 103.8 Estimated GFR (Non- 86.6 89.6 BUN/Creatinine Ratio 16.3 14.2 Random Glucose 118 mg/dl 102 mg/dl Calcium Level 9.1 mg/dl 8.2 mg/dl Magnesium Level 1.9 mg/dl Total Bilirubin 1.6 mg/dl 2.2 mg/dl Direct Bilirubin 0.4 mg/dl Aspartate Amino Transf (AST/SGOT) 21 U/L 13 U/L Alanine Aminotransferase (ALT/SGPT) 32 U/L 25 U/L Alkaline Phosphatase 92 U/L 75 U/L Total Creatine Kinase 63 U/L Creatine Kinase MB < 1.0 ng/ml Creatine Kinase MB Ratio Troponin I < 0.015 ng/ml < 0.015 ng/ml < 0.015 ng/ml < 0.015 ng/ml Total Protein 7.9 gm/dl 6.6 gm/dl Albumin 4.6 gm/dl 3.6 gm/dl Lipase 90 U/L Thyroid Stimulating Hormone (TSH) 0.680 uIu/ml Prothrombin Time 10.7 SECONDS Prothromb Time International Ratio 1.0 Activated Partial Thromboplast Time 28.4 SECONDS 33.6 SECONDS Partial Thromboplastin Ratio 1.1 1.3 C-Reactive Protein 1.84 mg/dl Lyme Disease IgG Antibody NEG Lyme Disease IgM Antibody NEG Hepatitis C Antibody Screen NEG Globulin 3.0 gm/dl Albumin/Globulin Ratio 1.2 Triglycerides Level 69 mg/dl Cholesterol Level 143 mg/dl HDL Cholesterol 58 mg/dl LDL Cholesterol, Calculated 71 mg/dl VLDL Cholesterol, Calculated 14 mg/dl Cholesterol/HDL Ratio 2.5 Test 8/5/18 06:56
[2017-10-25] MEDS ORDERED: ASPI325T60 PO (13:35)
[2017-10-25] MEDS ORDERED: PANT40TA2 PO (13:35)
[2017-10-25] MEDS ORDERED: CLC6 PO (13:35)
--- NOTE | 2017-10-25 13:50 | Discharge Instructions ---
Discharge Instructions Date of Service Oct 25, 2017. Admission Reason for Admission: Chest Pain Discharge Discharge Diagnosis / Problem: Acute pericarditis Discharge Goals Goal(s): Decrease discomfort, Improve function, Improve disease control Activity Recommendations Activity Limitations: resume your previous activity (as tolerated) . Instructions / Follow-Up Instructions / Follow-Up Call to schedule follow up appointment with a primary care provider within 1 week Follow up with cardiology Dr. Kim in 2 weeks at the [facility] ( Office will call you to arrange for the appointment. If you don't hear from then within 1 week, please call to schedule the follow appointment @ [phone] Please seek medical attention if symptoms worsening Aspirin can put you at risks of bleeding Please notify your physician if you develop any abnormal bleeding (such as blood in your urine, stool, ...) Fall precaution Lab work for systemic disease pending. (Your new physician can request for them or you can review it at your next appointment with cardiology or your primary provider) Current Hospital Diet Patient's current hospital diet: AHA Diet (Heart Healthy) Discharge Diet Recommended Diet: AHA Diet (Heart Healthy) Pending Studies Studies pending at discharge: yes List of pending studies: VERONICA, RF pending Laboratory Results Hemoglobin A1c Test 10/24/17 16:50 Range/Units Lipid Panel Test 10/25/17 04:01 Range/Units Triglycerides Level 69 0-150 mg/dl Cholesterol Level 143 0-200 mg/dl HDL Cholesterol 58 mg/dl Cholesterol/HDL Ratio 2.5 LDL Cholesterol, Calculated 71 mg/dl Medical Emergencies . Who to Call and When: Medical Emergencies: If at any time you feel your situation is an emergency, please call 911 immediately. . Non-Emergent Contact . . "Provider Documentation" section prepared by Lisa Covarrubias. .
[2017-10-25 13:51] VITALS: BP 117/75; PULSE 63; TEMP 36.8; O2SAT 97
[2017-10-25] MEDS ORDERED: LISINOPRIL 2.5 MG TAB PO SCH (21:00)
[2017-10-26 05:49] LABS: HEMOGLOBIN A1C 4.6 % (4.5-5.6)
[2017-10-27 14:56] LABS: ANA SCREEN TC 249X NEGATIVE (NEGATIVE)
[2017-10-28 11:02] LABS: QUANTIF MITOGEN-NIL 8.06 IU/ML; QUANTIFERON NEGATIVE (NEGATIVE); QUANTIFERON NIL 0.03 IU/ML
== END 2017-10-25 14:20 | disposition home or self-care (01) ==
LOC: C.EDB 16:18 → C.MED 20:46 → ENRESERV 21:15
PROVIDERS: ADMIT Internal Medicine; ATTEND Internal Medicine
DX: I30.9 Acute pericarditis, unspecified (principal); I34.1 Nonrheumatic mitral (valve) prolapse; Z87.891 Personal history of nicotine dependence; Z82.49 Family history of ischemic heart disease and other diseases of the circulatory system